=== PATIENT | female | born 1935 | race Caucasian/White ===

== ENCOUNTER 2017-01-03 08:06 | Emergency (ER) | payer OTHER ==
[2017-01-03 08:39] VITALS: BP 117/72; PULSE 63; RESP 18; TEMP 98.7; O2SAT 98; BMI 28.8
--- NOTE | 2017-01-03 09:19 | ED PDOC ---
Arrival/HPI - General Chief Complaint: High Blood Sugar Time Seen by Provider: 01/03/17 08:07 Historian: Patient - History of Present Illness Narrative History of Present Illness (Text): 01/03/17 10:33 An 81 year old female, whose past medical history includes diabetes, presents to the emergency department complaining of elevated blood sugar levels. [employer] served as a commercial insulator. Patient notes she doesn't have any more medications for diabetes and came from [facility]. In [facility], patient was prescribed 12 units of insulin and told to be taken every night. She would like to be instructed on diabetes management with primary care. Denies fever, confusion, dyspnea, vomiting. Symptom Onset: Sudden Symptom Course: Unchanged Activities at Onset: Rest Context: Home Past Medical History - Provider Review Nursing Documentation Reviewed: Yes - Reproductive Menopause: No - Cardiac Hx Cardiac Disorders: No - Pulmonary Hx Respiratory Disorders: No - Neurological Hx Neurological Disorder: No - Endocrine/Metabolic Hx Endocrine Disorders: Yes Hx Diabetes Mellitus Type 2: Yes - Psychiatric Hx Substance Use: No - Surgical History Hx Joint Replacement: Yes (left hip replacement) - Anesthesia Hx Anesthesia: Yes Hx Anesthesia Reactions: No Hx Malignant Hyperthermia: No Family/Social History - Physician Review Nursing Documentation Reviewed: Yes Family/Social History: No Known Family HX Smoking Status: Never Smoked Hx Alcohol Use: No Hx Substance Use: No Allergies/Home Meds Allergies/Adverse Reactions: Allergies No Known Allergies Allergy (Verified 01/03/17 08:32) Review of Systems - Physician Review All systems were reviewed & negative as marked: Yes - Review of Systems Constitutional: Other (elevated blood sugar) Eyes: Vision Changes (blurry vision) Physical Exam - Physical Exam Narrative Physical Exam (Text): Constitutional: No acute distress. Head: Normocephalic. Atraumatic. Eyes: PERRL. ENT: Moist mucous membranes. Neck: Supple. Cardiovascular: Regular rate. Chest: No tenderness. Respiratory: Clear to auscultation bilaterally. GI: Soft. Nontender. Nondistended. Back: No CVA tenderness. Musculoskeletal: No tenderness or swelling of extremities. Skin: No rash. Well healed scarring on L hip, no erythema, no swelling Neurologic: Alert, no focal deficit. Vital Signs Reviewed: Yes Vital Signs Temp Pulse Resp BP Pulse Ox 01/03/17 08:32 98.7 F 63 18 117/72 98 Temperature: Afebrile Blood Pressure: Normal Pulse: Regular Respiratory Rate: Normal Appearance: Positive for: Well-Appearing, Non-Toxic, Comfortable Pain Distress: None Mental Status: Positive for: Alert and Oriented X 3 Finger Stick Blood Glucose: 194 Medical Decision Making ED Course and Treatment: 01/03/17 10:28 Impression: An 81 year old female with elevated blood sugar levels. Progress Notes: Finger stick in emergency department was 194. Patient moved from [facility], with no diabetic medications. Patient notes she would like diabetic medication management. Will give short term prescription for 12 units nightly of Lantus. Given follow up information for clinic, [facility], and [facility] follow up service to help arrange patient's follow up for chronic diabetes management. At this time, no acute distress, normal vital signs, and FS elevated but not remarkably so. No indication for further ER evaluation. - Scribe Statement The provider has reviewed the documentation as recorded by the Piaibe Isaac Catalan Provider Scribe Attestation: All medical record entries made by the Scribe were at my direction and personally dictated by me. I have reviewed the chart and agree that the record accurately reflects my personal performance of the history, physical exam, medical decision making, and the department course for this patient. I have also personally directed, reviewed, and agree with the discharge instructions and disposition. Disposition/Present on Arrival - Present on Arrival Any Indicators Present on Arrival: No History of DVT/PE: No History of Uncontrolled Diabetes: No Urinary Catheter: No History of Decub. Ulcer: No History Surgical Site Infection Following: None - Disposition Have Diagnosis and Disposition been Completed?: Yes Diagnosis: Diabetes Disposition: HOME/ ROUTINE Disposition Time: 09:16 Patient Plan: Discharge Condition: STABLE Discharge Instructions (ExitCare): Diabetes Mellitus Type 2 in Adults (ED) Prescriptions: Insulin Glargine,Hum.rec.anlog [Lantus] 12 unit SQ QPM #2 vial Referrals: [facility] [Outside] - [place] up with [place] [facility] [place] - Follow up with primary Forms: [facility] ([place])
== END 2017-01-03 09:37 | disposition home or self-care (01) ==
LOC: ED 08:06
DX: E11.9 Type 2 diabetes mellitus without complications (principal)